=== PATIENT | male | born 1965 | race Caucasian/White ===

== ENCOUNTER → 2024-05-25 | Outpatient (CLI) | payer BC | LOC: RAD 12:28 | DX: M47.26 Other spondylosis with radiculopathy, lumbar region (principal) ==

== ENCOUNTER → 2024-09-29 | Outpatient (CLI) | payer BC ==
[2024-09-29 09:53] LABS: HEMATOCRIT 51.2 % (42.0-52.0); HEMOGLOBIN 16.7 g/dL (13.5-18.0); MEAN PLATELET VOLUME 9.3 fl (7.4-10.4); RED BLOOD COUNT 5.62 M/mm3 (4.20-5.60); RED CELL DISTRIBUTION WIDTH 13.2 % (11.5-14.5)
[2024-09-29 09:57] LABS: ALBUMIN 4.2 g/dL (3.4-4.8)
[2024-09-29 09:58] LABS: CALCIUM 9.8 mg/dL (8.3-10.5)
[2024-09-29 09:59] LABS: TOTAL PROTEIN 7.4 g/dL (6.2-8.1)
[2024-09-29 10:01] LABS: TOTAL BILIRUBIN 0.7 mg/dL (0.2-1.2)
== END ==
LOC: LAB 09:33
PROVIDERS: Family Medicine
DX: Z12.5 Encounter for screening for malignant neoplasm of prostate (principal); Z13.220 Encounter for screening for lipoid disorders; Z13.1 Encounter for screening for diabetes mellitus; D75.1 Secondary polycythemia